=== PATIENT | female | born 1975 | race Caucasian/White ===

== ENCOUNTER → 2017-08-11 | Outpatient (CLI) | payer OTHER ==
[~2017-08-11] MED LIST: ACETAMINOPHEN325 M1 PO; IBUPROFEN 600600 M1 PO; OMEPRAZOLE20 M2 PO
== END ==
LOC: M.CT 08-10 11:00
DX: N83.202 Unspecified ovarian cyst, left side (principal); N83.201 Unspecified ovarian cyst, right side; N85.4 Malposition of uterus; Z90.49 Acquired absence of other specified parts of digestive tract

== ENCOUNTER → 2018-06-12 | Outpatient (CLI) | payer OTHER | LOC: M.CT 14:15 | DX: Z13.6 Encounter for screening for cardiovascular disorders (principal) ==

== ENCOUNTER 2019-04-05 19:30 | Emergency (ER) | payer OTHER ==
[~2019-04-05] VITALS: Ht 167.6 cm; Wt 95.3 kg
[2019-04-05] MEDS ORDERED: MULTIVITAMINS PO (19:37)
[2019-04-05] MEDS ORDERED: COZAAR 25 MG TA25 M1 PO (19:37)
[2019-04-05] MEDS ORDERED: PROBIOTIC1 EAC1 PO (19:38)
[2019-04-05 20:18] LABS: ABSOLUTE EOSINOPHILS 0.2 thou/uL (0.0-0.7); ABSOLUTE LYMPHOCYTES 3.1 thou/uL (0.8-5.3); ABSOLUTE MONOCYTES 0.4 thou/uL (0.0-1.2); ABSOLUTE NEUTROPHILS 5.5 thou/uL (1.6-8.1); BASOPHILS 0.5 %; EOSINOPHILS 2.2 %; HEMATOCRIT 35.4 % (37.0-47.0); LYMPHOCYTES 33.6 %; MCH 28.4 pg (26.0-34.0); MCHC 34.1 g/dL (28.0-37.0); MCV 83.4 fL (80.0-100.0); MONOCYTES 3.8 %; MPV 7.6 fl. (7.2-11.1); NUCLEATED RBCS 0 /100WBC; PLATELET COUNT* 258 thou/uL (150-400); POLYS 59.9 %; RBC 4.24 mil/uL (4.20-5.00); RDW-CV 15.3 % (10.5-14.5); WBC 9.2 thou/uL (4.0-11.0)
[2019-04-05 20:27] LABS: ANION GAP 9 mmol/L (7-16); BUN 12 mg/dL (7-18); CALCIUM 9.1 mg/dL (8.5-10.1); CHLORIDE 104 mmol/L (98-107); CO2 25 mmol/L (21-32); GLUCOSE 102 mg/dL (70-99); POTASSIUM 3.9 mmol/L (3.5-5.1); SODIUM 138 mmol/L (136-145)
[2019-04-05 20:30] LABS: APTT 30.3 Seconds (25.0-31.3); PROTIME 10.2 Seconds (9.20-11.50)
[2019-04-05 20:40] LABS: ALBUMIN 3.8 g/dL (3.4-5.0); ALKALINE PHOSPHATASE 78 U/L (46-116); CK-MB MASS 0.6 ng/mL (<0.5-3.6); LIPASE 157 U/L (73-393); MAGNESIUM 2.1 mg/dL (1.8-2.4); NT-PRO BRAIN NAT PEPTIDE 14 pg/mL (<300); SGOT 19 U/L (15-37); SGPT 50 U/L (30-65); TOTAL BILIRUBIN 0.2 mg/dL (<0.1-1.0); TOTAL PROTEIN 7.8 g/dL (6.4-8.2); TROPONIN-I LEVEL <0.06 ng/mL (<0.06)
[2019-04-05 21:00] VITALS: BP 114/61
--- NOTE | 2019-04-07 10:39 | EKG ---
[place] [address] ELECTROCARDIOGRAM REPORT Name: JOSE CARLSON [facility] [id number] Admission: 04/05/19 Attend Phys: Discharge: 04/05/19 Date of : 77 Report #: [id number] THIS REPORT FOR: //name// [facility] ED Test Date: 2019-04-05 Test Time: 19:35:04 Pat Name: JOSE CARLSON Department: Room: Gender: F Scientific Research Associate: SOURAV : 1975 Requested By: Celso Armenta Order Number: [id number] MD: Elton Jacobo Measurements Intervals [place]man Rate: 96 P: 37 WI: 124 QRS: 18 QRSD: 88 T: 2 QT: 356 QTc: 450 Interpretive Statements Sinus rhythm Borderline repolarization abnormality No previous ECG available for comparison Electronically Signed On 04-07-2019 10:39:21 CDT by Elton Jacobo [email or web address] <ELECTRONICALLY SIGNED> By: lEton Jacobo MD, [facility] 04/07/19 1039 1935 34 Elton Jacobo MD, FACC /EPI
== END 2019-04-05 21:00 | disposition home or self-care (01) ==
LOC: M.ERS 19:30
PROVIDERS: Family Medicine
DX: R00.2 Palpitations (principal); Z87.891 Personal history of nicotine dependence; Z90.89 Acquired absence of other organs

== ENCOUNTER → 2019-12-12 | Outpatient (CLI) | payer OTHER ==
[~2019-12-12] MED LIST changes: +COZAAR 25 MG TA25 M1 PO; +MULTIVITAMINS PO; +PROBIOTIC1 EAC1 PO
== END ==
LOC: M.LAB 16:00
PROVIDERS: ATTEND Internal Medicine
DX: Z03.818 Encounter for observation for suspected exposure to other biological agents ruled out (principal)

== ENCOUNTER → 2020-06-15 | Outpatient (CLI) | payer OTHER ==
[2020-06-15 10:11] LABS: ABSOLUTE BASOPHILS 0.1 thou/uL (0.0-0.2); ABSOLUTE EOSINOPHILS 0.2 thou/uL (0.0-0.7); ABSOLUTE LYMPHOCYTES 2.4 thou/uL (0.8-5.3); ABSOLUTE MONOCYTES 0.3 thou/uL (0.0-1.2); ABSOLUTE NEUTROPHILS 6.2 thou/uL (1.6-8.1); BASOPHILS 0.8 %; EOSINOPHILS 2.1 %; HEMATOCRIT 36.2 % (37.0-47.0); LYMPHOCYTES 26.1 %; MCHC 33.1 g/dL (28.0-37.0); MCV 81.5 fL (80.0-100.0); MONOCYTES 2.8 %; MPV 6.8 fl. (7.2-11.1); NUCLEATED RBCS 0 /100WBC; PLATELET COUNT* 311 thou/uL (150-400); POLYS 68.2 %; RBC 4.44 mil/uL (4.20-5.00); RDW-CV 14.8 % (10.5-14.5)
[2020-06-15 10:31] LABS: ALBUMIN 3.6 g/dL (3.4-5.0); ALKALINE PHOSPHATASE 77 U/L (46-116); ANION GAP 6 mmol/L (7-16); BUN 11 mg/dL (7-18); CALCIUM 9.3 mg/dL (8.5-10.1); CHLORIDE 104 mmol/L (98-107); CHOLESTEROL 202 mg/dL (<200); CO2 29 mmol/L (21-32); CREATININE 0.9 mg/dL (0.6-1.3); GLUCOSE 79 mg/dL (70-99); HDL CHOLESTEROL 35 mg/dL (>40); LDL CHOLESTEROL 133 mg/dL (<100); SGOT 14 U/L (15-37); SGPT 30 U/L (30-65); SODIUM 139 mmol/L (136-145); TC:HDL 5.8 Ratio (Not establshd); TOTAL BILIRUBIN 0.3 mg/dL (<0.1-1.0); TOTAL PROTEIN 7.4 g/dL (6.4-8.2); TRIGLYCERIDE 171 mg/dL (<150); VLDL 34 mg/dL (<40)
[2020-06-15 10:32] LABS: SERUM ASSESSMENT Slight Lipemia
[2020-06-15 22:06] LABS: T3 UPTAKE 24 % (24-39)
== END ==
LOC: M.LAB 09:51
PROVIDERS: ATTEND Family Medicine
DX: Z00.00 Encounter for general adult medical examination without abnormal findings (principal)

== ENCOUNTER → 2020-06-22 | Outpatient (CLI) | payer OTHER | LOC: M.CT 06-17 08:30 | PROVIDERS: ATTEND Family Medicine | DX: R90.82 White matter disease, unspecified (principal); R51.9 Headache, unspecified ==

== ENCOUNTER → 2021-02-26 | Outpatient (CLI) | payer OTHER ==
[2021-02-26 10:40] LABS: ABSOLUTE NEUTROPHILS 6.1 thou/uL (1.6-8.1); MCH 26.8 pg (26.0-34.0); RBC 4.47 mil/uL (4.20-5.00)
[2021-02-26 10:42] LABS: ABSOLUTE BASOPHILS 0.1 thou/uL (0.0-0.2); ABSOLUTE EOSINOPHILS 0.2 thou/uL (0.0-0.7); ABSOLUTE LYMPHOCYTES 2.5 thou/uL (0.8-5.3); ABSOLUTE MONOCYTES 0.4 thou/uL (0.0-1.2); BASOPHILS 0.7 %; EOSINOPHILS 2.4 %; HEMATOCRIT 36.1 % (37.0-47.0); LYMPHOCYTES 27.3 %; MCHC 33.2 g/dL (28.0-37.0); MCV 80.7 fL (80.0-100.0); MONOCYTES 3.8 %; MPV 7.4 fl. (7.2-11.1); NUCLEATED RBCS 0 /100WBC; PLATELET COUNT* 255 thou/uL (150-400); POLYS 65.8 %; RDW-CV 15.2 % (10.5-14.5); WBC 9.3 thou/uL (4.0-11.0)
[2021-02-26 10:47] LABS: ALBUMIN 3.7 g/dL (3.4-5.0); ALKALINE PHOSPHATASE 71 U/L (46-116); ANION GAP 9 mmol/L (7-16); BUN 11 mg/dL (7-18); CALCIUM 8.4 mg/dL (8.5-10.1); CHLORIDE 105 mmol/L (98-107); CHOLESTEROL 135 mg/dL (<200); CO2 28 mmol/L (21-32); CREATININE 0.9 mg/dL (0.6-1.3); GLUCOSE 89 mg/dL (70-99); HDL CHOLESTEROL 37 mg/dL (>40); LDL CHOLESTEROL 77 mg/dL (<100); POTASSIUM 4.4 mmol/L (3.5-5.1); SGOT 17 U/L (15-37); SGPT 29 U/L (30-65); SODIUM 142 mmol/L (136-145); TC:HDL 3.6 Ratio (Not establshd); TOTAL BILIRUBIN 0.2 mg/dL (<0.1-1.0); TOTAL PROTEIN 7.3 g/dL (6.4-8.2); TRIGLYCERIDE 108 mg/dL (<150); VLDL 22 mg/dL (<40)
[2021-02-26 10:49] LABS: SERUM ASSESSMENT Clear
[2021-02-26 23:06] LABS: T3 UPTAKE 23 % (24-39)
== END ==
LOC: M.CT 09:25
PROVIDERS: ATTEND Family Medicine
DX: Z12.31 Encounter for screening mammogram for malignant neoplasm of breast (principal); K42.9 Umbilical hernia without obstruction or gangrene